=== PATIENT | male | born 1955 | race Caucasian/White ===

== ENCOUNTER 2016-10-22 06:41 | Inpatient (IN) | payer MEDICARE ==
--- NOTE | 2016-10-09 15:24 | HP ---
ADMISSION HISTORY AND PHYSICAL: DATE OF ADMISSION: 10/22/16 PATIENT OF: Dr. Romario Christian. (DICTATED BY KRISTIN ALCALA) CHIEF COMPLAINT: Morbid obesity. HISTORY OF PRESENT ILLNESS: Mr. Allison is a pleasant 61-year-old gentleman who was seen in the office earlier this year to consider bariatric surgery. The patient has longstanding history of excessive body weight for which he had multiple comorbidities including hypertension, hyperlipidemia, type 2 diabetes, and chronic back pain for which he has been on this disability and was forced to retire early. The patient has tried multiple regimens of diet and exercise in the past, but failed to maintain his weight loss. He was pursuing bariatric surgery earlier this year and joined the bariatric team and was evaluated by different specialities including sleep studies, cardiac evaluation as well as medical clearance, and overall was found to be a good candidate to undergo a bariatric surgery. The patient was seen by Dr. Christian earlier this month to consider a laparoscopic sleeve gastrectomy. He returned to the office today for a preoperative visit regarding his upcoming bariatric surgery. He reports doing well since his last office visit. He was seen by Dr. Denisha Cintron on and was cleared medically to proceed with surgery. He also had a cardiac clearance by his presetter operator Dr. Santos earlier in August when the patient had both echocardiogram and a stress test and found to be stable from a cardiac point of view to proceed with surgery as well. The patient denies any changes in his health since his last office visit. He actually lost a little bit of weight since he started on the preoperative dietary regimen that bariatric patients take before the surgery. He denies any abdominal pain, nausea, vomiting, or changes in the bowel habits. He is excited and wishes to proceed with surgery and for this reason he was seen in the office today to answer any questions and to obtain all the necessary preoperative documentation in anticipation for his procedure. PAST MEDICAL HISTORY: The patient has medical history significant for type 2 diabetes mellitus for which he has been on metformin. He also has a benign essential hypertension, chronic back pain with lumbago and lumbar disk problems. He also has history of diabetic peripheral neuropathy due to his diabetes. He also has history of the colonic polyps. His last colonoscopy was approximately 3 years ago and he is due for a colonoscopy sometime later this year. He denies any history of sleep apnea or use of CPAP in the past. The patient also has history of a DVT back in 1999 and denies any blood thinners intake in the last couple of years. PAST SURGICAL HISTORY: Significant for left lower extremity surgery multiple times back in 2006, 2011, and 2012 due to chronic venostasis ulcers that were a complication of his prior DVT back in 1999. The patient also has history of back surgery back in 2004. He had an L3-L4 discectomy and L5 replacement with hip bone implants. He also has an umbilical hernia repair back in 2003. CURRENT MEDICATIONS: His medications at home include: 1. Iron sulfate 325 mg once by mouth daily. 2. Vitamin C once daily. 3. Metformin 1000 mg 1 tablet p.o. b.i.d. 4. Thiamine 100 mg p.o. with every meal. 5. Atorvastatin 10 mg once daily. 6. Gabapentin 300 mg 1 capsule by mouth 3 times daily. 7. Gemfibrozil 600 mg 1 tablet b.i.d. 8. Lisinopril/hydrochlorothiazide 20/12.5 one tablet daily. 9. Baby aspirin 81 mg once daily. 10. Acetaminophen 500 mg every 8 hours as needed for pain or headache. 11. Vitamin B12 500 mcg once daily after dinner. ALLERGIES: He has no known drug allergies. FAMILY HISTORY: Noncontributory. SOCIAL HISTORY: The patient lives with a significant female partner. He is retired due to his multiple disability including back pain and diabetic neuropathy. 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 He is a former smoker who quit back in 1994. He denies any illicit drug use and he drinks alcohol rarely. REVIEW OF SYSTEMS: See HPI, otherwise negative. He denies any headache, syncope, change of vision, or tinnitus. No chest pain, shortness of breath, cough, or wheezing. He denies any back pain, flank pain, dysuria, hematuria, or urinary frequency. No abdominal pain, nausea, vomiting, or recent changes in bowel habits. He denies any fever, chills, night sweats, or recent weight loss. PHYSICAL EXAMINATION GENERAL: He is a pleasant, obese, upper middle-age gentleman, in no acute distress or discomfort at the time of surgery. VITALS: Today, his blood pressure is 134/80, temperature of 96.9, respiration of 16, pulse of 64. He is 5 feet 9 inches tall and weights 244 pounds with a BMI of 36. HEENT: Sclerae anicteric. PERRLA. EOMs intact. Oropharynx pink, moist with no exudate. NECK: Supple. Trachea midline. No cervical adenopathy or thyromegaly. LUNGS: Clear to auscultation bilaterally. No rales, wheezes, or rhonchi. HEART: Regular rate and rhythm. No rubs, murmurs, or gallops. ABDOMEN: Soft, nontender, round, and nondistended. There are no hernias, masses, or hepatosplenomegaly. There is a questionable small umbilical hernia noted; however, the patient notes no bulging or discomfort in the area since his prior umbilical hernia repair a few years ago. There is no hepatosplenomegaly noted. BACK: With normal curvature. No CVA tenderness. EXTREMITIES: Without cyanosis, clubbing, or edema. RECTAL EXAM: Deferred at this time. NEUROLOGIC: Grossly intact. IMPRESSION: A 61-year-old gentleman who has been followed up by our practice in anticipation for a bariatric surgery who was both cleared medically and from a cardiac point of view to undergo a laparoscopic sleeve gastrectomy in mid October. PLAN: As mentioned above, the patient has been found to be a good candidate for a laparoscopic sleeve gastrectomy to be performed by Dr. Christian on 10/22/16. The rationale, indications, risks, and benefits of this surgery were discussed with him today. Risks include, but not limited to infection, bleeding , or injury to adjacent structures. He seems to be well informed and all his questions were answered today. We went through all the immediate preoperative requirements for the patient including baseline blood work. We will also possibly get the hospitalist followup immediately postoperative due to his multiple medical issues. We will hold his metformin the day before surgery and I explained to him that he will be covered with the insulin sliding scale during his immediate postoperative time in the hospital. He does not use any CPAP and has no clear history of any sleep apnea. All his questions again were answered and we will follow him up accordingly after his gastric sleeve. [facility] KRISTIN HYLTON CC: Dr. Denisha Cintron; Dr. Sami Santos* [id number]/[facility] #: [id number] TRISTAN
[~2016-10-22 06:41] MED LIST: Buffered Lidocaine 0.9% SYRIN* 5 ML/SYR SYRINGE INTRADERM ONE
[2016-10-22] MEDS ORDERED: ceFAZolin 2 GM PREMIX(*) 2 GM/50 ML BAG IVPB ONE (06:54)
[2016-10-22] MEDS ORDERED: Heparin VIAL(*) 5000 UNITS/ML VIAL (FIVE THOUSAND) ONE (06:54)
[2016-10-22] MEDS ORDERED: Clindamycin 900 MG IVPREMIX(* 900 MG/50 ML SDV IV ONE (06:54)
[2016-10-22] MEDS ORDERED: Famotidine IV* 10 MG/ML 2 ML (20 mg) ONE (07:29)
[2016-10-22] MEDS ORDERED: Bupivacaine 0.25% W/EPI* 50 ML VIAL ONE (07:29)
[2016-10-22] MEDS ORDERED: fentaNYL* 50 MCG/ML 2 ML VIAL (100 MCG VIAL) ONE ×4 (07:29→09:55)
[2016-10-22] MEDS ORDERED: Midazolam* 1 MG/ML 2 ML VIAL (2 MG) ONE (07:29)
[2016-10-22] MEDS ORDERED: Rocuronium* 10 MG/ML VIAL ONE (07:53)
[2016-10-22] MEDS ORDERED: DiMENhydriNATE IV* 50 MG/ML VIAL IV PUSH PRN (08:54)
[2016-10-22] MEDS ORDERED: Ondansetron INJ* 2 MG/ML VIAL IV PRN (08:54)
[2016-10-22] MEDS ORDERED: PROCHLORPERAZINE INJ 5 MG/ML 2 ML VIAL IV PRN (08:54)
[2016-10-22] MEDS ORDERED: Succinylcholine* 20 MG/ML 10 ML VIAL ONE (09:00)
[2016-10-22] MEDS ORDERED: Dexamethasone IV* 4 MG/ML 1 ML (4 MG) ONE (09:00)
[2016-10-22] MEDS ORDERED: Lidocaine 2% PF * 5 ML VIAL ONE (09:00)
[2016-10-22] MEDS ORDERED: Ondansetron INJ* 2 MG/ML VIAL ONE (09:00)
[2016-10-22] MEDS ORDERED: Propofol* 10 MG/ML 20 ML BTL IV PUSH ONE (09:00)
[2016-10-22] MEDS ORDERED: Ketorolac INJ* 30 MG/ML 1 ML VIAL ONE (09:00)
[2016-10-22] MEDS ORDERED: Ketorolac INJ* 15 MG/ML 1 ML VIAL IV PRN (09:27)
--- NOTE | 2016-10-22 09:27 | SURGPN ---
Brief Operative Note - Surgery Procedures: Procedures Pre-OP Diagnoses: Clinically severe obesity Post-op Diagnosis: same Procedure: Laparoscopic sleeve gastrectomy Surgeon: Gino Asst: Geronimo Anethesia: JUDY Vail EBL: minimal IVF: 1200cc LR Specimen: portion of stomach Drains: none
[2016-10-22] MEDS ORDERED: HYDROmorphone* 1 MG/ML 1 ML SYR ONE ×2 (09:55→11:30)
[2016-10-22] MEDS: fentaNYL* 50 MCG/ML 2 ML VIAL (100 MCG VIAL) IV PRN ×4 (09:56→10:27)
[2016-10-22] MEDS: HYDROmorphone* 1 MG/ML 1 ML SYR IV PRN ×9 (09:57→21:34)
[2016-10-22] MEDS: Heparin VIAL(*) 5000 UNITS/ML VIAL (FIVE THOUSAND) SUBCUT SCH ×2 (14:32→21:37)
[2016-10-23] MEDS: HYDROmorphone* 1 MG/ML 1 ML SYR IV PRN ×3 (00:38→09:31)
[2016-10-23] MEDS: Ondansetron INJ* 2 MG/ML VIAL IV PRN ×2 (04:04→10:41)
[2016-10-23] MEDS: Heparin VIAL(*) 5000 UNITS/ML VIAL (FIVE THOUSAND) SUBCUT SCH ×2 (05:58→14:18)
[2016-10-23 06:24] LABS: Hematocrit 32 % (42-52); Mean Corpuscular HGB Conc 34 g/dl (31-36); Mean Corpuscular Hemoglobin 29 pg (27-31); Mean Corpuscular Volume 85 fL (80-94); Mean Platelet Volume 9 um3 (7.4-10.4); Red Cell Distribution Width 13 % (10.5-15); White Blood Count 9.7 10^3/ul (3.5-10.8)
--- NOTE | 2016-10-23 09:31 | PN ---
Progress Note - Progress Note SOAP: Subjective: Pt seen and examined. Doing well. Some Left ided abdo pain. Some vomiting after UGI this am. Objective: af vss lung clear abdo; soft/distended/NT dressing intact. small hematoma at midline incision no calf tenderness labs noted Ugi reviewed Assessment: POD 1 sleeve gastrectomy Plan: bariatric diet possible d/c home later today
--- NOTE | 2016-10-23 11:21 | RAD ---
INDICATION: Status post gastric sleeve procedure evaluate for leak. COMPARISON: There are no prior studies available for comparison at this time due due to problems with the picture archiving system. Technique: An upper GI series examination was performed with Gastrografin contrast. 1.5 minutes of intermittent fluoroscopic guidance were provided. Findings: The esophageal peristalsis appeared normal. The patient is status post laparoscopic gastric sleeve procedure. The body and fundus of the stomach is narrowed consistent with the patient's surgery. There is mild irregularity of the mucosal pattern in the proximal portion of the stomach consistent with the patient's recent surgery. There is no evidence for intraperitoneal leakage of contrast. The stomach emptied normally. IMPRESSION: STATUS POST GASTRIC SLEEVE PROCEDURE, NORMAL POSTOPERATIVE APPEARANCE. CPT II Codes: 6045F
[2016-10-23] MEDS: HYDROcodone/ACET. 7.5/325 LIQ* 15 ML UDC PO PRN ×2 (12:52→18:31)
[2016-10-23 15:25] VITALS: BP 139/60
--- NOTE | 2016-10-23 18:34 | PN ---
Progress Note - Progress Note Note: i-stop checked. Script sent to [facility]. Autumn griggs.
--- NOTE | 2016-10-24 02:27 | DS ---
CC: Dr. Denisha Cintron; [facility]; Dr. Sami Santos * DISCHARGE SUMMARY: DATE OF ADMISSION: 10/22/16 DATE OF DISCHARGE: 10/23/16 HISTORY OF PRESENT ILLNESS: Mr. Allison is a 61-year-old gentleman worked up as an outpatient with clinically severe obesity, hypertension, hypercholesterolemia, type 2 diabetes, and chronic back pain, who came in for same-day surgery and underwent a laparoscopic sleeve gastrectomy. Please see operative report for details. Postoperatively, the patient was transferred to the PACU and then on to the short-stay surgical unit. In the overnight period, the patient did well. He had some oozing from one of his incision sites. This was controlled with direct pressure and redressing this. He did trip over his IV line in the middle of the night and developed a small laceration on his anterior left lower leg. This was treated with gauze and bleeding did stop. This was examined this morning. On postoperative day 1, the patient underwent an upper GI study, which was within normal limits, and started on a bariatric clear diet, which he tolerated. By later in the day on postoperative day 1, he was ambulating, urinating well and in no significant pain. Pain was treated with narcotics and plan was for discharge home. IMPRESSION: Postoperative day 1 laparoscopic sleeve gastrectomy. PLAN: Discharge home. The patient will continue his iron, his metformin, his thiamine, his gabapentin, his aspirin, and his vitamin D. We will hold his atorvastatin and lisinopril/hydrochlorothiazide for now, and we will see him in our offices for removal of rakan. We will go over his blood pressure at that time and see if he needs to be restarted. The patient understands the plan. He has been told about his diet going forward and we will see him in our offices next week. [id number]/[facility] #: [id number] TRISTAN
--- NOTE | 2016-10-24 02:27 | OP ---
CC: Dr. Denisha Cintron * DATE OF OPERATION: 10/22/16 - ROOM #350 DATE OF : 53 SURGEON: Romario Christian MD GYMNASTIC TEACHER: Jung Melton MD ANESTHESIOLOGIST: Jose David Vail MD ANESTHESIA: General. PRE-OP DIAGNOSES: 1. Clinically severe obesity. 2. Hypertension. 3. Type 2 diabetes. POST-OP DIAGNOSES: 1. Clinically severe obesity. 2. Hypertension. 3. Type 2 diabetes. OPERATIVE PROCEDURE: Laparoscopic sleeve gastrectomy. ESTIMATED BLOOD LOSS: Minimal. FLUIDS: 1200 cc of lactated Ringer's given. SPECIMEN: Portion of the stomach. DRAINS: None. COUNT: Lap pad count and instrument count correct at the end of the procedure. DESCRIPTION OF PROCEDURE: The patient was identified in the preoperative area, case discussed with him, and consent signed. The patient was marked and brought to the operating room and placed on the operating room table in the supine position. Preoperative antibiotics were given. Sequential devices were placed on bilateral lower extremities. General anesthesia was induced and the patient's abdomen was clipped of hair and then prepped and draped in the standard surgical fashion. Time- out was performed. Folds of the umbilicus were elevated anteriorly and a Veress needle was inserted into the abdominal cavity which was then allowed to insufflate to a pressure of 15 mmHg. The patient tolerated the insufflation well. [place] between the xiphoid and the umbilicus, just left of midline, a 12-mm trocar was inserted, laparoscope was inserted through this. There was no evidence of injury from the Veress needle or from the trocar. Veress needle was then removed. An additional trocar was then placed in the following position: Two 5 -mm in the left upper quadrant and a 12-mm in the right upper quadrant. The patient was placed in a steep reverse Trendelenburg. A Jason retractor was inserted through a subxiphoid incision and the liver was retracted anteriorly to the right exposing the gastroesophageal fat pad. This fat pad was retracted towards the right lower quadrant and blunt dissection was carried out at the angle of His to expose the left crura. It should be noted that the liver appeared normal, as did the spleen. Attention was then turned towards the pylorus. Approximately, 6 cm proximal to the pylorus on the greater curvature, a retrogastric tunnel was made and the vasculature to this greater curvature was taken with LigaSure device right up to the angle of His. Posterior attachments and short splenic vessels were taken with the LigaSure as well until the stomach could be completely rotated on its axis. Next, a sleeve stomach was created using JARED 60-mm purple load stapling device with Tri-Staple technology and started distally along the greater curvature extending this toward the incisura taking care not to go too tight with the help of sizing bougie of 40 [place]ian. We stayed tight to the bougie right to the fundus of the stomach. Staple line was intact with mild oozing at the very first staple line. A 10-mm clip was then utilized for hemostasis at this site. Stomach was then placed in an endoscopic retrieval bag. A liver retractor was removed. Hemostasis was excellent. The stomach was then removed with the endoscopic retrieval bag through the right upper quadrant port site and passed off as specimen. Abdomen was allowed to collapse. Trocar was removed under direct vision and all 5 skin incisions were reapproximated with skin rakan followed by Steri-Strips and sterile dressing. [id number]/[facility] #: [id number] [facility] HOSPITALAdolfo
== END 2016-10-23 18:40 | disposition home or self-care (01) | DRG 621 ==
LOC: AA 06:41 → SSU 11:29
PROVIDERS: ADMIT Surgery; ATTEND Surgery
PROC: 0DB64Z3 Excision of Stomach, Percutaneous Endoscopic Approach, Vertical (ICD-10-PCS; principal; 2016-10-22 07:45)
DX: E66.01 Morbid (severe) obesity due to excess calories (principal); E11.42 Type 2 diabetes mellitus with diabetic polyneuropathy; I10 Essential (primary) hypertension; E78.00 Pure hypercholesterolemia, unspecified; G89.29 Other chronic pain; S81.812A Laceration without foreign body, left lower leg, initial encounter; W01.198A Fall on same level from slipping, tripping and stumbling with subsequent striking against other object, initial encounter; Y92.239 Unspecified place in hospital as the place of occurrence of the external cause; E78.5 Hyperlipidemia, unspecified; M54.5 Low back pain; Z86.010 Personal history of colon polyps; Z86.718 Personal history of other venous thrombosis and embolism; I87.8 Other specified disorders of veins; Z96.698 Presence of other orthopedic joint implants; Z87.891 Personal history of nicotine dependence; Z68.36 Body mass index [BMI] 36.0-36.9, adult; G47.33 Obstructive sleep apnea (adult) (pediatric); Z79.84 Long term (current) use of oral hypoglycemic drugs; Z79.82 Long term (current) use of aspirin
CPT/HCPCS: 36415; 74246; 85025; 87641; 88307; J0330; J0690; J1100; J1170; J1644; J1885; J2250; J2405; J2704; J3010

== ENCOUNTER 2016-12-12 12:22 | Inpatient (IN) | payer MEDICARE ==
[2016-12-12] MEDS ORDERED: Metoclopramide IV* 5 MG/ML 2 ML VIAL IV PRN (16:44)
[2016-12-12] MEDS ORDERED: Ondansetron INJ* 2 MG/ML VIAL IV PRN (16:44)
[2016-12-12 17:24] LABS: Hematocrit 35 % (42-52); Hemoglobin 11.7 g/dl (14.0-18.0); Mean Corpuscular HGB Conc 33 g/dl (31-36); Mean Corpuscular Hemoglobin 29 pg (27-31); Mean Corpuscular Volume 85 fL (80-94); Mean Platelet Volume 8 um3 (7.4-10.4); Red Blood Count 4.09 10^6/ul (4.0-5.4); Red Cell Distribution Width 15 % (10.5-15); White Blood Count 5.8 10^3/ul (3.5-10.8)
[2016-12-12 17:39] LABS: Albumin 4.1 g/dL (3.2-5.2); BUN/Creatinine Ratio 23.4 (8-20); Calcium 9.4 mg/dL (8.6-10.3); EGFR African American 24.3 (>60); EGFR Non-African American 18.9 (>60); Globulin 3.2 g/dL (2-4); Potassium 4.9 mmol/L (3.5-5.0); Total Bilirubin 0.5 mg/dL (0.2-1.0); Total Protein 7.3 g/dL (6.4-8.9)
[2016-12-12] MEDS: Dextrose 50% Syringe 50 ML* 25 GM/50 ML SYRINGE IV PUSH PRN ×2 (18:14→18:46)
[2016-12-12] MEDS: NS 0.9% 1000 ML* 2,000 ML IV ONE ×2 (18:14→19:09)
[2016-12-12] MEDS: Insulin LISPRO* 1 UNITS UNIT SUBCUT SCH (18:18)
[2016-12-12] MEDS: Pantoprazole IV* 40 MG IV SCH (18:48)
[2016-12-12] MEDS: HYDROmorphone* 1 MG/ML 1 ML SYR IV SLOW PU PRN (18:49)
--- NOTE | 2016-12-12 19:43 | HP ---
CC: Dr. 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 Romario Christian * (DICTATED BY KRISTIN ALCALA) REASON FOR ADMISSION: 1. Nausea and vomiting with dehydration. 2. Bariatric surgery status. He is status post laparoscopic sleeve gastrectomy in October of this year. HISTORY OF PRESENT ILLNESS: Mr. Allison is a pleasant 61-year-old gentleman , who is well known to our practice from prior bariatric surgery. The patient underwent laparoscopic sleeve gastrectomy by Dr. Christian on 10/22/16. He did extremely well in the immediate postoperative period with was only mild incisional pain, but denied any nausea, vomiting, or significant abdominal pain. He was seen twice in the office for postoperative visit and has been doing extremely well overall. The patient notes that for the past week, he has been having frequent episodes of nausea and vomiting started with only certain foods, but now he has been unable to keep anything down. He complains of occasional epigastric discomfort, but no significant pain, fever, chills, hematemesis, melena, or any other associated symptoms. He described nausea and vomiting as first started with only certain foods like meats and pasta; however , now if he drinks extra amount of water or other clear liquid, he will vomit shortly after. He thinks that he has not been having any adequate p.o. intake for the past few days. He also described decreased urine output and he feels extremely dehydrated. The patient was seen in the office per his request and his initial vitals revealed stable blood pressure and no evidence of tachycardia. Given his ongoing symptoms, I discussed the case with Dr. Christian, who advised to send the patient to the hospital for observation overnight as well as to obtain laboratory workup and IV fluid hydration. The patient is currently stable. He denies any abdominal pain and he agreed to the plan as outlined. PAST MEDICAL HISTORY: As mentioned above, significant for morbid obesity for which he had laparoscopic sleeve gastrectomy on 10/22/16. He also has history of type 2 diabetes mellitus, essential hypertension, chronic back pain, colonic polyps with last colonoscopy about 3 years ago. He also has history of sleep apnea with use of CPAP in the past as well as history of DVT back in 1999, but has not been taking any blood thinners over the past couple of years. PAST SURGICAL HISTORY: Significant for left lower extremity surgery multiple times back in 2006, 2011, and 2013 due to chronic venous stasis ulcers with complication with DVT back in 1999. He also has history of back surgery in 2004. L3 and L4 diskectomy with L5 replacement with hip bone implant. Also, history of umbilical hernia repair back in 2003. MEDICATIONS: His current medications include: 1. Lisinopril 20 mg p.o. daily. 2. Arthritis pain relief 650 mg 2 tablets p.o. p.r.n. for pain. 3. Vitamin B12 1000 mcg once daily. 4. Vitamin B1 100 mg once daily. 5. Metformin 100 mg once b.i.d. 6. Tylenol over the counter as needed for aches and pains. ALLERGIES: He has no known drug allergies. FAMILY HISTORY: Noncontributory. SOCIAL HISTORY: The patient is single and he lives with his girlfriend. He is a former smoker and he drinks 1 alcoholic beverage per day. REVIEW OF SYSTEMS: See HPI, otherwise negative. He denies any headache, blurred vision, syncope, or easy fatigue. No cough, sore throat, wheezes, or shortness of breath. No chest pain, palpitation, or murmur. He denies any back pain, flank pain, dysuria, hematuria, or urinary frequency. He admits to nausea and vomiting getting worsening every single day, but denies any abdominal pain, changes in the bowel habits or bleeding per rectum. No fever, chills, night sweats, or recent weight loss. PHYSICAL EXAMINATION GENERAL: He is a pleasant, upper middle-aged gentleman, appears ill and pale, but in no acute distress or discomfort. VITAL SIGNS: Revealed pulse 76, blood pressure of 104/70, respiration of 16, temperature of 97.2. He weighs 202 pounds on a 5 feet 9 inches frame with BMI of 29.8. HEENT: Sclerae anicteric. PERRLA. EOMs intact. Oropharynx is dry. NECK: Supple. Trachea midline. No cervical adenopathy or thyromegaly. LUNGS: Clear to auscultation bilaterally. HEART: Regular rate and rhythm. Normal S1 and S2 without rubs, murmurs, or gallops. BACK: Normal curvature. No CVA tenderness. ABDOMEN: Soft and nondistended. There is very mild epigastric and periumbilical tenderness noted, but no guarding, rigidity, or rebound tenderness. Incisions from prior sleeve gastrectomy well healed with no evidence of hernias or masses. No other hernias, masses, or hepatosplenomegaly. EXTREMITIES: Without cyanosis, clubbing, or edema. RECTAL: Deferred at this time. NEUROLOGIC: Grossly intact. IMPRESSION: He is a 61-year-old gentleman, who is status post laparoscopic sleeve gastrectomy back in October of this year with 1-week history of worsening nausea, vomiting, and dehydration. PLAN: The case was discussed in detail with his Dr. Christian. It was advised for the patient to be admitted to the hospital overnight for close observation. Given his ongoing symptoms, he has likely suffered from dehydration for which we will provide IV fluid as well as obtain some laboratory workup for further evaluation of his nausea and vomiting. We will also obtain an upper GI tomorrow morning for further evaluation of possible marginal ulcer. The patient will be covered prophylactically with DVT and PPI prophylaxis and also I mentioned to him the possibility of getting a GI consultation with possible EGD, pending on the results of the upper GI. He appears to be clinically stable at this time and will be directly admitted from the office to the [facility] and we will follow him up accordingly. KRISTIN ALCALA [id number]/[facility] #: [id number] MTDD
[2016-12-12] MEDS: D5W 1/2 NS 1000 ML BAG* 1,000 ML IV SCH (20:10)
[2016-12-12] MEDS: Silver Sulfadiazine 1%* 20 GM TOPICAL SCH (20:11)
[2016-12-12] MEDS: Heparin VIAL(*) 5000 UNITS/ML VIAL (FIVE THOUSAND) SUBCUT SCH (22:04)
[2016-12-13] MEDS: HYDROmorphone* 1 MG/ML 1 ML SYR IV SLOW PU PRN ×2 (00:04→05:58)
[2016-12-13] MEDS: Insulin LISPRO* 1 UNITS UNIT SUBCUT SCH ×4 (00:29→18:35)
[2016-12-13] MEDS: D5W 1/2 NS 1000 ML BAG* 1,000 ML IV SCH ×4 (02:39→18:11)
[2016-12-13] MEDS: Heparin VIAL(*) 5000 UNITS/ML VIAL (FIVE THOUSAND) SUBCUT SCH ×3 (06:06→21:07)
[2016-12-13 08:00] LABS: BUN/Creatinine Ratio 27.2 (8-20); Calcium 8.8 mg/dL (8.6-10.3); EGFR African American 40.7 (>60); EGFR Non-African American 31.6 (>60); Potassium 4.1 mmol/L (3.5-5.0)
--- NOTE | 2016-12-13 08:26 | PN ---
Progress Note - Progress Note Date of Service: 12/13/16 SOAP: Subjective: Pt seen and examined. >1 week h/o N/V and inability to keep food down. Accompanied with abdominal pain. Objective: af hyotensive, +5L Uo fair lungs clear abdo: soft/ND/NT Assessment: 6 weeks s/p sleeve gastrectomy, dysphagia, ARF DDx: stricture, twist, ulcer Plan: UGI Hydration GI consult
--- NOTE | 2016-12-13 09:15 | RAD ---
INDICATION: 6 weeks post gastric sleeve gastrectomy. Nausea, vomiting. Acute renal failure. COMPARISON: October 23, 2016 upper GI series. TECHNIQUE: Following ingestion of effervescent granules the patient swallowed Gastrografin under fluoroscopic observation. Multiple spot images of the esophagus, stomach, and duodenum were obtained. 0.6 minutes fluoroscopy. FINDINGS: There is uninterrupted passage of enteric contrast from the esophagus through the region of the gastric sleeve. There is mild smooth margined distention of the gastric antrum and prolonged although intermittent narrowing of the lumen at the pylorus. No enteric leak evident. Large volume of gastroesophageal reflux observed. No gross abnormality of the partially visualized distal esophageal mucosa. No gastric or duodenal ulceration evident. IMPRESSION: 1. Intermittent and delayed passage of enteric contrast through the pylorus. Given transient observed normal distention no obstructing lesion is suspected. Functional disorder/gastroparesis favored. 2. Large volume gastroesophageal reflux. Results discussed with Dr. Lucas 12/13/2016 9:11 AM EDT CPT II: CPT II Codes: 6045F
[2016-12-13] MEDS: Silver Sulfadiazine 1%* 20 GM TOPICAL SCH ×2 (09:20→21:13)
[2016-12-13] MEDS: HYDROmorphone* 2 MG/ML 1 ML SYR IV SLOW PU PRN ×3 (11:02→21:33)
[2016-12-13] MEDS: Gabapentin CAP(*) 300 MG PO SCH (17:24)
[2016-12-13] MEDS: metFORMIN* 1,000 MG TAB PO SCH (17:25)
[2016-12-13] MEDS: Pantoprazole IV* 40 MG IV SCH (17:28)
[2016-12-14] MEDS: Insulin LISPRO* 1 UNITS UNIT SUBCUT SCH ×4 (00:45→17:16)
[2016-12-14] MEDS: D5W 1/2 NS 1000 ML BAG* 1,000 ML IV SCH ×4 (00:46→20:59)
[2016-12-14] MEDS: HYDROmorphone* 2 MG/ML 1 ML SYR IV SLOW PU PRN (04:10)
[2016-12-14] MEDS: Heparin VIAL(*) 5000 UNITS/ML VIAL (FIVE THOUSAND) SUBCUT SCH ×3 (06:41→21:00)
[2016-12-14 06:59] LABS: BUN/Creatinine Ratio 21.4 (8-20); Calcium 8.8 mg/dL (8.6-10.3); EGFR African American 71.3 (>60); EGFR Non-African American 55.4 (>60); Potassium 4.5 mmol/L (3.5-5.0)
[2016-12-14] MEDS: metFORMIN* 1,000 MG TAB PO SCH ×2 (07:36→17:58)
[2016-12-14] MEDS: Silver Sulfadiazine 1%* 20 GM TOPICAL SCH ×2 (10:21→20:59)
--- NOTE | 2016-12-14 10:25 | PN ---
Progress Note - Progress Note Date of Service: 12/14/16 SOAP: Subjective: Pt seen and examined. >1 week h/o N/V and inability to keep food down. Accompanied with abdominal pain. Centrally located. Admitted for ARF, dyspahgia Objective: af vss lungs clear abdo: soft/ND/NT ext : wnl labs noted Cr=1.3 UGI: partial obstruction at pylorus Assessment: 6 weeks s/p sleeve gastrectomy, dysphagia, ARF DDx: ulcer, gastroparesis Plan: Hydration GI consult advance diet Pt may need definitive bypass of pylorus if no improvement, I briefly discussed this along with the current workup plan
[2016-12-14] MEDS: Gabapentin CAP(*) 300 MG PO SCH (17:57)
[2016-12-14] MEDS: Pantoprazole IV* 40 MG IV SCH (17:58)
[2016-12-14] MEDS: HYDROmorphone* 1 MG/ML 1 ML SYR IV SLOW PU PRN (20:30)
[2016-12-15] MEDS: Insulin LISPRO* 1 UNITS UNIT SUBCUT SCH ×4 (03:21→17:55)
[2016-12-15] MEDS: HYDROmorphone* 1 MG/ML 1 ML SYR IV SLOW PU PRN ×2 (04:05→21:00)
[2016-12-15] MEDS: D5W 1/2 NS 1000 ML BAG* 1,000 ML IV SCH ×3 (04:05→18:59)
[2016-12-15] MEDS: Heparin VIAL(*) 5000 UNITS/ML VIAL (FIVE THOUSAND) SUBCUT SCH ×3 (05:56→21:00)
[2016-12-15 07:47] LABS: Hematocrit 31 % (42-52); Hemoglobin 10.4 g/dl (14.0-18.0); Mean Corpuscular HGB Conc 34 g/dl (31-36); Mean Corpuscular Hemoglobin 29 pg (27-31); Mean Corpuscular Volume 85 fL (80-94); Mean Platelet Volume 9 um3 (7.4-10.4); Red Blood Count 3.66 10^6/ul (4.0-5.4); Red Cell Distribution Width 14 % (10.5-15)
[2016-12-15 08:03] LABS: BUN/Creatinine Ratio 14.2 (8-20); Calcium 8.5 mg/dL (8.6-10.3); EGFR African American 84.6 (>60); EGFR Non-African American 65.8 (>60); Magnesium 1.3 mg/dL (1.9-2.7); Phosphorus 2.7 mg/dL (2.5-5.0); Potassium 4.2 mmol/L (3.5-5.0)
[2016-12-15] MEDS: metFORMIN* 1,000 MG TAB PO SCH ×2 (08:50→17:50)
[2016-12-15] MEDS: Silver Sulfadiazine 1%* 20 GM TOPICAL SCH ×2 (08:51→21:10)
--- NOTE | 2016-12-15 11:02 | PN ---
Progress Note - Progress Note Date of Service: 12/15/16 SOAP: Subjective: Reports doing about the same. Denies any pain, nausea or vomiting now. Still notes nausea with PO intake. No fever or chills. Ambulatory. Objective: Awake and alert, comfortable in bed, in NAD VSS, afebrile Heart RRR, ni mururs Lungs CTA bilat. Abdomen soft, NT, ND. No hernias or masses. Assessment: A 61 y/o male, s/p LSG with UGI showing partial obstruction at pylorus. Dehdration Nausea and vomiting Plan: Await GI consult Keep on full liquids for now PPI and DVT prophylaxis
--- NOTE | 2016-12-15 12:50 | PN ---
Progress Note - Progress Note Date of Service: 12/15/16 SOAP: Subjective: Reports doing about the same. Denies any pain, no nausea. Objective: Awake and alert, comfortable in bed, in NAD VSS, afebrile Heart RRR, ni mururs Lungs CTA bilat. Abdomen soft, NT, ND. No hernias or masses. Labs reviewed. Prealb=25 Assessment: A 61 y/o male, s/p LSG with UGI showing partial obstruction at pylorus. Resolving ARF Plan: EGD today PPI and DVT prophylaxis
[2016-12-15] MEDS ORDERED: Meperidine SYRINGE* 50 MG/ML ONE (14:13)
[2016-12-15] MEDS ORDERED: Midazolam* 1 MG/ML 10 ML VIAL (10 MG) ONE (14:13)
[2016-12-15] MEDS: Gabapentin CAP(*) 300 MG PO SCH (17:52)
[2016-12-15] MEDS ORDERED: Omeprazole CAP* 20 MG PO SCH (21:00)
[2016-12-16] MEDS: Insulin LISPRO* 1 UNITS UNIT SUBCUT SCH ×2 (00:14→06:25)
[2016-12-16] MEDS: D5W 1/2 NS 1000 ML BAG* 1,000 ML IV SCH (01:46)
[2016-12-16] MEDS: HYDROmorphone* 1 MG/ML 1 ML SYR IV SLOW PU PRN (04:00)
[2016-12-16] MEDS: Heparin VIAL(*) 5000 UNITS/ML VIAL (FIVE THOUSAND) SUBCUT SCH (06:19)
[2016-12-16] MEDS ORDERED: HYDROcodone/ACETAMIN 5-325 MG* 1 TAB PO PRN ×2 (08:25)
[2016-12-16] MEDS: metFORMIN* 1,000 MG TAB PO SCH (08:39)
[2016-12-16] MEDS ORDERED: Omeprazole CAP* 20 MG PO SCH (09:00)
[2016-12-16] MEDS: Silver Sulfadiazine 1%* 20 GM TOPICAL SCH (09:28)
[2016-12-16 15:16] VITALS: BP 138/62
[2016-12-17 00:57] LABS: Whole Blood Vitamin B1 Level 127 nmol/L (70-180)
--- NOTE | 2016-12-17 03:42 | DS ---
CC: Dr. Denisha Cintron * DISCHARGE SUMMARY: DATE OF ADMISSION: 12/12/16 DATE OF DISCHARGE: 12/16/16 ATTENDING SURGEON: Dr. Romario Christian.* (DICTATED BY KRISTIN ORR) HOSPITAL COURSE: Please refer to admission history and physical for admission details. The patient underwent an upper GI study on 12/13/16 after receiving adequate IV hydration. The upper GI showed a large volume of gastroesophageal reflux as well as intermittent and delayed passage of contrast through the pylorus. He was treated with IV Protonix and then underwent EGD on 12/15/[address] Guzman. Findings included pjsejepj-ej-aclyxx esophagitis, biopsies were taken. There was no evidence of pyloric obstruction. The patient's symptoms were improved. He was tolerating clear liquid diet that was advanced to a pureed diet on the morning of discharge and he will continue to advance gradually at home as tolerated. He will be discharged on omeprazole 40 mg b.i.d. A prescription is also e-sent to his pharmacy for [place] ([facility] Registry checked). DISCHARGE MEDICATIONS: He will otherwise continue with his usual home meds includin. Metformin 1000 mg b.i.d. 2. Gabapentin 900 mg q. day. 3. Multivitamin. 4. Thiamine. 5. Vitamin B12. DISCHARGE FOLLOWUP: He will be due for a 3-month postop followup in our office and will contact us if there are any other problems in the interim. KRISTIN ORR [id number]/[facility] #: [id number] [facility]
--- NOTE | 2016-12-18 16:15 | PRO ---
CC: Dr. Christian * DATE OF PROCEDURE: 12/15/2016 - inpatient room #351-01. PROCEDURE PERFORMED: EGD. INDICATION: Dysphagia. REFERRING PHYSICIAN: Dr. Christian. MEDICATIONS GIVEN: 25 mg IV Demerol and 5 mg IV Versed. PROCEDURE: After the EGD procedure, including the risks, benefits and alternatives, not limited to perforation, surgery, and/or were explained to Mr. Allison, written consent was then obtained. IV medication was given and a bite block was placed between the teeth. An Olympus gastroscope was then inserted into the patient's mouth, advanced down the esophagus, into the stomach , and into the distal duodenum. In the esophagus, he did have grade C erosive esophagitis. I also took biopsies for eosinophilic esophagitis. The scope was advanced through a widely patent GE junction and into the body of the stomach. He does have evidence of a gastric sleeve. No ulcers or obstructions were seen. The scope was advanced through a widely patent pylorus, into the duodenal bulb and into the distal duodenum. No abnormalities were seen. The scope was withdrawn from the patient. He tolerated the procedure well and was returned to recovery room in stable condition. IMPRESSION: 1. Complete upper endoscopy into the distal duodenum with biopsies. 2. Gastric sleeve surgery. 3. Grade C erosive esophagitis. 4. Biopsies for eosinophilic esophagitis. 5. Gastritis. 6. I will follow-up on all the biopsies and report back to the patient at that time. Dr. Christian, thank you very much for your kind referral. [id number]/[facility] #: [id number] [facility]
--- NOTE | 2016-12-18 20:52 | CONS ---
CONSULTATION REPORT: DATE OF CONSULT: 12/15/16 REQUESTING PHYSICIAN: Dr. Christian. INDICATION: Dysphagia. NARRATIVE: Mr. Allison is a very pleasant 61-year-old gentleman who underwent a gastric sleeve surgery in October of this year. He did very well; however, a few weeks ago, he noted that he has been having nausea and vomiting. Initially, it began with solids; however, then became with liquids also. He states that he gets severe heartburn when he has liquids. He is able to get most liquids down now, but solids do tend to come back up on him. He came into the emergency room on Thursday and was admitted for dehydration. His surgeon now is requesting an upper endoscopy for further evaluation. PAST MEDICAL HISTORY: Significant for morbid obesity, type 2 diabetes, chronic back pain, history of colon polyps, hypertension, sleep apnea, DVT. PAST SURGICAL HISTORY: Includes back surgery, sleeve gastrectomy, umbilical hernia repair. MEDICATIONS: Upon admission include: 1. Lisinopril. 2. Vitamin B12, B1. 3. Metformin. ALLERGIES: None. FAMILY HISTORY: No GI malignancies in the family. SOCIAL HISTORY: No tobacco. He drinks 1 beer per day. REVIEW OF SYSTEMS: Twelve systems were reviewed, other than that mentioned in the HPI were unremarkable. PHYSICAL EXAM: Temperature is 98.6, blood pressure is 126/68, pulse is 71. General: Well-appearing male, in no apparent distress. Alert, oriented, pleasant, fluent. HEENT: Mucous membranes are moist, without lesions, ulcers or exudate. Neck is supple. Trachea is midline. Head is normocephalic, atraumatic. Heart: Regular rate and rhythm. Lungs: Clear to auscultation bilaterally. No wheezes, rales or rhonchi. Abdomen: Obese, positive bowel sounds, soft, mild epigastric tenderness. No rebound, no guarding. Skin: Warm and dry. DIAGNOSTIC STUDIES/LAB DATA: Of note, white count is 5; hemoglobin is 10.4, down from 11.7; BUN is 16 with a creatinine of 1.13. ASSESSMENT AND PLAN: Mr. Allison is a pleasant 61-year-old gentleman with dysphagia status post sleeve surgery. At this point, he does need an EGD for further evaluation. I do wonder if he could have a motility disorder versus a gastroparesis versus eosinophilic esophagitis versus a stricture or ring. I will make arrangements for his EGD today. [id number]/[facility] #: [id number] [facility]
== END 2016-12-16 12:35 | disposition home or self-care (01) | DRG 683 ==
LOC: SSU 12:22 → OBSVTOIN 12-14 12:22
PROVIDERS: ADMIT Surgery; ATTEND Surgery
PROC: 0DB58ZX Excision of Esophagus, Via Natural or Artificial Opening Endoscopic, Diagnostic (ICD-10-PCS; principal; 2016-12-15)
DX: N17.9 Acute kidney failure, unspecified (principal); K22.10 Ulcer of esophagus without bleeding; E11.9 Type 2 diabetes mellitus without complications; E86.0 Dehydration; K29.70 Gastritis, unspecified, without bleeding; M54.9 Dorsalgia, unspecified; G47.33 Obstructive sleep apnea (adult) (pediatric); Z98.84 Bariatric surgery status; Z86.718 Personal history of other venous thrombosis and embolism; Z79.84 Long term (current) use of oral hypoglycemic drugs; Z79.1 Long term (current) use of non-steroidal anti-inflammatories (NSAID); Z79.899 Other long term (current) drug therapy; Z87.891 Personal history of nicotine dependence
CPT/HCPCS: 36415; 74246; 80048; 80053; 82607; 82728; 83540; 83550; 83735; 84100; 84134; 84425; 85025; 87077; 87641; 88305; 99156; A9270-GY; G0378; J1170; J1644; J2250; J2310; J2405; J2765

== ENCOUNTER → 2018-06-28 09:23 | Day surgery (SDC) | payer MEDICARE ==
[~2018-06-28 09:23] MED LIST changes: +Acetaminophen TAB* 325 MG PO PRN; -Buffered Lidocaine 0.9% SYRIN* 5 ML/SYR SYRINGE INTRADERM ONE; +Buffered Lidocaine 1% SYRIN* 1 ML/SYRINGE INTRADERM ONE; +Famotidine IV* 10 MG/ML 2 ML (20 mg) IV ONE; +Famotidine IV* 10 MG/ML 2 ML (20 mg) ONE; +Ibuprofen TAB* 600 MG PO PRN; +Lactated Ringers 1000 ML Bag* 1,000 ML IV SCH; +Lidocaine 2% PF* 10 ML AMP ONE; +Midazolam* 1 MG/ML 2 ML VIAL (2 MG) ONE; +Naloxone* 0.4 MG/ML 1 ML VIAL IV PRN; +Ondansetron INJ* 2 MG/ML VIAL IV PRN; +Propofol* 10 MG/ML 20 ML BTL ONE; +ceFAZolin 2 GM PREMIX in ORs 2 GM/50 ML BAG IVPB ONE; +fentaNYL* 50 MCG/ML 2 ML VIAL (100 MCG VIAL) IV PRN; +fentaNYL* 50 MCG/ML 2 ML VIAL (100 MCG VIAL) ONE; +oxyCODONE/Acetamin 5/325 MG* TAB PO PRN
[2018-06-28 13:47] VITALS: BP 120/66
--- NOTE | 2018-06-28 14:57 | OP ---
DATE OF OPERATION: 06/28/18 - [facility] DATE OF : 53 ATTENDING SURGEON: Dr. Yobany Silver. POSTPARTUM NURSE: Didi Denton PA-C. PRE-OP DIAGNOSIS: Deformity right great toe with ulceration, chronic. POST-OP DIAGNOSIS: Deformity right great toe with ulceration, chronic. OPERATIVE PROCEDURE: Disarticulation, right great toe. DESCRIPTION OF PROCEDURE: The patient was taken to the operating room where ankle Esmarch was used with local anesthetic instilled. We made a transverse elliptical incision just distal to the IP joint of the right great toe. We dissected down to the IP joint and dissected proximally where the sagittal saw was used to transect the distal third of the proximal phalanx. We then delivered the toe to Pathology. We irrigated thoroughly after dropping the tourniquet and closed dorsal to plantar with 3-0 Monocryl, 2-0 Prolene, and a compression dressing applied. [id number]/[facility] #: [id number] [facility]
== END | disposition home or self-care (01) ==
LOC: OR 09:23
PROVIDERS: ATTEND Orthopaedic Surgery
DX: E11.621 Type 2 diabetes mellitus with foot ulcer (principal); E11.42 Type 2 diabetes mellitus with diabetic polyneuropathy; M20.61 Acquired deformities of toe(s), unspecified, right foot; I10 Essential (primary) hypertension; Z87.891 Personal history of nicotine dependence; I77.810 Thoracic aortic ectasia
CPT/HCPCS: 87070; 87073; 87205; 88305; 88311; J0690; J2001; J2250; J2704; J3010